=== PATIENT | male | born 1965 | race Caucasian/White ===

== ENCOUNTER → 2017-08-18 | Outpatient (CLI) | payer OTHER ==
[2017-08-18 17:36] LABS: ALBUMIN 4.5 g/dL (3.5-5.0); BUN/CREATININE RATIO 15.7 (6.0-26.0); CALCIUM 9.5 mg/dL (8.4-10.2); POTASSIUM 3.8 mmol/L (3.6-5.0); TOTAL BILIRUBIN 0.5 mg/dL (0.2-1.3)
== END ==
LOC: LAB 17:07
PROVIDERS: Physician Assistant
DX: I10 Essential (primary) hypertension (principal); Z13.1 Encounter for screening for diabetes mellitus; Z13.6 Encounter for screening for cardiovascular disorders; Z12.5 Encounter for screening for malignant neoplasm of prostate

== ENCOUNTER → 2017-08-21 | Outpatient (CLI) | payer OTHER ==
[~2017-08-21] VITALS: Ht 190.5 cm; Wt 104.5 kg
[2017-08-21 16:04] VITALS: BP 165/107
== END ==
LOC: AMSURD 15:54
DX: I10 Essential (primary) hypertension (principal)

== ENCOUNTER → 2020-10-13 | Outpatient (CLI) | payer BC ==
[2020-10-13 09:59] LABS: BASO # 0.02 (0.02-0.10); EOS # 0.06 (0.04-0.40); EOS % 1.8 % (0.0-4.0); HEMATOCRIT 46.8 % (42.0-52.0); HEMOGLOBIN 16.1 g/dL (13.5-18.0); LYMPH# 1.15 (1.50-4.00); MEAN CELL VOLUME 92 fl (78-100); MEAN CORPUSCULAR HEMOGLOBIN 32 pg (27-31); MEAN CORPUSCULAR HGB CONC 34 g/dL (33-37); MEAN PLATELET VOLUME 9.3 fl (7.4-10.4); MONO # 0.29 (0.20-0.80); NEU # 1.86 (1.40-6.50); PLATELET COUNT 202 K/mm3 (130-400); RED BLOOD COUNT 5.08 M/mm3 (4.20-5.60); WHITE BLOOD COUNT 3.4 K/mm3 (4.8-10.8)
[2020-10-13 13:26] LABS: ALBUMIN 4.2 g/dL (3.5-5.0)
[2020-10-13 13:28] LABS: CALCIUM 9.5 mg/dL (8.3-10.5)
[2020-10-13 13:31] LABS: TOTAL BILIRUBIN 0.6 mg/dL (0.2-1.2)
== END ==
LOC: LAB 09:13
PROVIDERS: Family Medicine
DX: Z13.6 Encounter for screening for cardiovascular disorders (principal); Z12.5 Encounter for screening for malignant neoplasm of prostate; I10 Essential (primary) hypertension; R73.9 Hyperglycemia, unspecified

== ENCOUNTER → 2020-10-29 | Outpatient (CLI) | payer BC ==
[2020-10-29 12:09] LABS: ALBUMIN 4.4 g/dL (3.5-5.0)
[2020-10-29 12:11] LABS: CALCIUM 9.5 mg/dL (8.3-10.5)
[2020-10-29 12:12] LABS: TOTAL PROTEIN 7.5 g/dL (6.4-8.3)
[2020-10-29 12:14] LABS: TOTAL BILIRUBIN 0.5 mg/dL (0.2-1.2)
== END ==
LOC: LAB 11:46
PROVIDERS: Family Medicine
DX: K75.9 Inflammatory liver disease, unspecified (principal); R73.9 Hyperglycemia, unspecified

== ENCOUNTER → 2024-04-07 | Outpatient (CLI) | payer BC ==
[~2024-04-07] MED LIST: LISINOPRIL2.5 MG PO
== END ==
LOC: RAD 16:50
DX: I70.202 Unspecified atherosclerosis of native arteries of extremities, left leg (principal)